=== PATIENT | male | born 2000 | race Caucasian/White ===

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

== ENCOUNTER 2024-06-12 12:23 | Emergency (ER) | payer MEDICAID, SELFPAY ==
[2024-06-12 12:25] VITALS: BP 115/68; PULSE 89; RESP 18; TEMP 36.6; O2SAT 99; BMI 40.6
--- NOTE | 2024-06-12 12:32 | XR_ITS ---
WS: [id number] Left ankle, 3 views, 06/12/2024 Clinical Data: inversion Comparison: None. Findings: No fractures or dislocations are seen. The ankle mortise is normal. The talus and calcaneus are unrem arkable. No soft tissue swelling over the medial or lateral malleolus is seen. XR/XR ankle LT min 3V* [id number] Impression: Negative left ankle.
--- NOTE | 2024-06-12 12:32 | XR_ITS ---
WS: [id number] Left foot, 3 views, 06/12/2024 Clinical Data: inversion midfoot tender Comparison: None. Findings: No fractures or dislocations are seen. No bone destruction or erosion is noted. The joint spaces and soft tissues are normal. XR/XR foot LT min 3V* [id number] Impression: Negative left foot.
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
[2024-06-12 13:34] VITALS: BP 116/76; PULSE 94; O2SAT 98
[2024-06-12 13:35] VITALS: BP 116/76; PULSE 94; O2SAT 98
== END 2024-06-12 13:36 | disposition home or self-care (01) ==
PROVIDERS: Emergency Provider Emergency Medicine; Family Provider Family Medicine
DX: S93.402A Sprain of unspecified ligament of left ankle, initial encounter (principal); X58.XXXA Exposure to other specified factors, initial encounter
CPT/HCPCS: 73610; 73630; 99283; E0114